=== PATIENT | male | born 1990 | race American Indian/Alaskan Native ===

== ENCOUNTER 2019-02-15 12:02 | Emergency (ER) | payer SELFPAY ==
--- NOTE | 2019-02-15 12:21 | Emergency Department Report ---
Chief Complaint: Urogenital-Male Stated Complaint: GENITALS DISCOMFORT/PAIN Time Seen by Provider: 02/15/19 12:17 - HPI History of Present Illness: This is a 28 y.o. M. that presents to the ER with penile pruritus and lower abdominal pain 2 days. + Urinary frequency, penile discharge - testicular enlargement and pain - Exam Vital Signs: Vital Signs 02/15/19 12:17 Temperature 98.6 F Pulse Rate 70 Respiratory 15 Rate Blood Pressure 119/79 [Left] O2 Sat by Pulse 100 Oximetry MSE screening note: Focused history and physical exam performed. Due to findings the following was ordered: ED Disposition for MSE Condition: Stable
--- NOTE | 2019-02-15 13:06 | Emergency Department Report ---
ED Dysuria HPI - HPI Chief Complaint: Urogenital-Male Stated Complaint: discharge Time Seen by Provider: 02/15/19 12:17 Duration: 3 Days Symptoms: Dysuria: Yes, Frequency: No, Suprapubic Pain: No, Flank Pain: No, Fever: No, Hematuria: No, Abdominal Pain: No, Previous UTI's: No Other History: Patient is a 28-year-old -[place] male after having rectal sex, unprotected, he developed discomfort with urination. He states that he can milk discharge from his penis but it is a small amount of discharge. He will not endorse dysuria he says it's uncomfortable and that he has to urinate often to feel better. He has no fever. He is ambulatory. His girlfriend is also in a patient treatment area. He denies previous history of STD. He states that the rectal sex with a one time thing. He denies having sex with males. 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 ED Review of Systems ROS: Stated complaint: GENITALS DISCOMFORT/PAIN Other details as noted in HPI Comment: All other systems reviewed and negative ED Past Medical Hx - Past Medical History Previous Medical History?: No - Surgical History Past Surgical History?: No - Social History Smoking Status: Never Smoker Substance Use Type: None Dysuria Exam - Exam General: Vital signs noted. No distress. Alert and acting appropriately. Exam: Yes Moist Mucous Membranes, No CVA Tenderness, No Abdominal Tenderness, No Rigidity or Guarding ED Course Vital Signs 02/15/19 12:17 Temperature 98.6 F Pulse Rate 70 Respiratory 15 Rate Blood Pressure 119/79 [Left] O2 Sat by Pulse 100 Oximetry ED Medical Decision Making - Medical Decision Making Lab Results 02/15/19 Range/Units Unknown Urine Color Yellow (Yellow) Urine Turbidity Clear (Clear) Urine pH 6.0 (5.0-7.0) Ur Specific [place] 1.028 (1.003-1.030) Urine Protein <15 mg/dl (Negative) mg/dL Urine Glucose (UA) Neg (Negative) mg/dL Urine Ketones Neg (Negative) mg/dL Urine Blood Neg (Negative) Urine Nitrite Neg (Negative) Urine Bilirubin Neg (Negative) Urine Urobilinogen 2.0 (<2.0) mg/dL Ur Leukocyte Esterase Neg (Negative) Urine WBC (Auto) 2.0 (0.0-6.0) /HPF Urine RBC (Auto) 2.0 (0.0-6.0) /HPF U Epithel Cells (Auto) < 1.0 (0-13.0) /HPF Urine Bacteria (Auto) 1+ (Negative) /HPF Urine Mucus Few /HPF Vital Signs 02/15/19 12:17 Temperature 98.6 F Pulse Rate 70 Respiratory 15 Rate Blood Pressure 119/79 [Left] O2 Sat by Pulse 100 Oximetry Patient's urine noted. Patient endorsing urinary discomfort with no leukocytes or nitrates in his urine. Patient has recent unprotected anal sex exposure. Discussed with patient routine STD testing which can be done at the health Department. Given his symptoms we'll treat empirically with Zithromax and Rocephin. Patient given referral to health Department and PCP. Long discussion with patient about safe sex, rectal sex and the difference between UTIs and STDs. - Differential Diagnosis male STI Critical care attestation.: If time is entered above; I have spent that time in minutes in the direct care of this critically ill patient, excluding procedure time. ED Disposition Clinical Impression: Concern about STD in male without diagnosis Disposition: DC-01 TO HOME OR SELFCARE Is pt being admited?: No Does the pt Need Aspirin: No Condition: Stable Instructions: Safe Sex (ED) Additional Instructions: safe sex all recent partners should be treated Referrals: VÍCTOR LIPSCOMB MD [Staff Physician] - 3-5 Days Time of Disposition: 13:53
[2019-02-15 13:30] LABS: Bacteria,Urine 1+ /HPF (Negative); Bilirubin,Urine NEG (Negative); Blood,Urine NEG (Negative); Color,Urine Yellow (Yellow); Mucus,Urine FEW /HPF; Protein,Urine <15 mg/dL mg/dL (Negative)
[2019-02-15] MEDS ORDERED: XYLOCAINE 1% MPF 5 mL INFILTRATI ONE (13:51)
[2019-02-15] MEDS ORDERED: ROCEPHIN IM ONE (13:51)
[2019-02-15] MEDS ORDERED: ZITHROMAX PO ONE (13:51)
[2019-02-15 15:22] VITALS: BP 118/62
== END 2019-02-15 15:22 | disposition home or self-care (01) ==
LOC: ED 12:02
DX: R36.9 Urethral discharge, unspecified (principal); R35.0 Frequency of micturition; R10.30 Lower abdominal pain, unspecified
CPT/HCPCS: 81001; 96372; 99283; J0696

== ENCOUNTER 2019-06-24 12:05 | Emergency (ER) | payer SELFPAY ==
[2019-06-24 12:23] VITALS: BP 117/61
--- NOTE | 2019-06-24 12:53 | Event Note ---
ED Screening Note Date of service: 06/24/19 Time: 12:50 ED Screening Note: This is a 29 y.o. M. that presents to the ER with urinary frequency with low output for 2-3 days. Denies enlarged testicles or pain, back pain, or pelvic pain. This initial assessment/diagnostic orders/clinical plan/treatment(s) is/are subject to change based on patients health status, clinical progression and re- assessment by fellow clinical providers in the ED. Further treatment and workup at subsequent clinical providers discretion. Patient/guardian urged not to elope from the ED as their condition may be serious if not clinically assessed and managed. Initial orders include: UA
[2019-06-24 13:13] LABS: Bilirubin,Urine NEG (Negative); Blood,Urine NEG (Negative); Color,Urine Yellow (Yellow); Mucus,Urine 1+ /HPF; Protein,Urine <15 mg/dL mg/dL (Negative)
--- NOTE | 2019-06-24 13:26 | Emergency Department Report ---
Chief Complaint: Urogenital-Male Stated Complaint: UTI Time Seen by Provider: 06/24/19 12:50 - HPI History of Present Illness: 29-year-old male presents to ED complaining of having premature ejaculation. Patient states that he notices for the past couple of days. Patient denies any problems urinating, dysuria, fever, chills, nausea vomiting, abdominal pain, pain no pain, scrotal swelling or pain. Patient states he to bolded and things he has a UTI. Patient denies any penile scrotal rash - ROS Review of Systems: As noted in HPI - Exam Vital Signs: Vital Signs 06/24/19 12:22 Temperature 98.0 F Pulse Rate 64 Respiratory 16 Rate Blood Pressure 117/61 O2 Sat by Pulse 100 Oximetry Physical Exam: GENERAL: Alert and oriented x3, no apparent distress, Normal Gait, atraumatic. SKIN: Warm and dry, No lesions, No ulceration or induration present. MSE screening note: Focused history and physical exam performed. Due to findings the following was ordered: ED Medical Decision Making - Medical Decision Making Patient presents for nonmedical emergency. I discussed the patient to follow-up with Dr. norris in [address]. Patient is in no acute distress. Vital signs are normal he understands instructions Refferrals given to patient. ED Disposition for MSE Clinical Impression: Dysuria Disposition: Z-07 MED SCREENING EXAM-LEFT Is pt being admited?: No Does the pt Need Aspirin: No Condition: Stable Instructions: Dysuria (ED) Additional Instructions: Make sure to follow up with the primary care physician as discussed. If you have any worsening symptoms or develop new symptoms please return to ED immediately. Referrals: VU NORRIS MD [Staff Physician] - 3-5 Days Forms: Work/School Release Form(ED) Time of Disposition: 13:25
== END 2019-06-24 14:00 | disposition left against medical advice (07) ==
LOC: ED 12:05
DX: R30.0 Dysuria (principal)
CPT/HCPCS: 81001; 99282